=== PATIENT | female | born 1970 | race Caucasian/White ===

== ENCOUNTER 2023-08-06 07:22 | Emergency (ER) | payer BC ==
[2023-08-06 07:31] VITALS: TEMP 98; BMI 41.3
[2023-08-06 08:21] LABS: HEMATOCRIT 44.9 % (32.4-45.2); HEMOGLOBIN 15.3 G/dL (10.7-15.3); MCH 30.6 pg (25.7-33.7); MCHC 34.1 g/dl (32.0-36.0); MEAN CELL VOLUME 89.7 fl (80-96); MEAN PLT VOLUME 8.8 fl (7.5-11.1); PLATELET COUNT 224.3 10^3/uL (134-434); RDW 13.7 % (11.6-15.6); WHITE BLOOD COUNT 6.6 10^3/uL (4.0-10.8)
[2023-08-06 08:25] LABS: PROTHROMBIN TIME (PATIENT) 11.6 SEC (9.7-13.0)
[2023-08-06 08:28] LABS: ACTIVATED PTT 32.6 SECONDS (25.2-36.5)
[2023-08-06 08:42] LABS: ALBUMIN 4.7 g/dl (3.4-5.0); BILIRUBIN,TOTAL 0.5 mg/dl (0.2-1); CREATININE 0.6 mg/dl (0.6-1.3); POTASSIUM 4.1 mmol/L (3.5-5.1); TOT PROT 7.2 g/dl (6.4-8.2)
[2023-08-06 09:02] VITALS: BP 137/87; PULSE 86; RESP 16
== END 2023-08-06 09:03 | disposition home or self-care (01) ==
LOC: FER 07:22
DX: M25.562 Pain in left knee (principal); R22.42 Localized swelling, mass and lump, left lower limb; S83.8X2A Sprain of other specified parts of left knee, initial encounter; X58.XXXA Exposure to other specified factors, initial encounter
CPT/HCPCS: 36415; 80053; 85027; 85610; 85730; 93971-TC; 99284-25